=== PATIENT | male | born 1945 | race Two or more races ===

== ENCOUNTER 2016-11-29 14:56 | Emergency (ER) | payer SELFPAY ==
[~2016-11-29] VITALS: Ht 165.1 cm; Wt 52.2 kg
[2016-11-29 15:26] VITALS: BP 134/72
--- NOTE | 2016-11-29 15:39 | Emergency Room Report ---
History of Present Illness General Chief Complaint: Pain Source: EMS Present Illness HPI 71-year-old male presents to the emergency department brought by ambulance for being unresponsive to bystanders on the street. Patient is hard of hearing and Slovak speaking only. and states he has no complaints at this time patient is ambulatory in no acute distress history of present illness and ROS is limited due to patient being so hard of hearing however he does communicate that he is not in any pain does not have any complaints he is aware of where he is and is alert and oriented. Denies CP, Palpitations, LOC, AMS, dizziness, Changes in Vision, Sensation, paresthesias, or a sudden severe headache. Allergies: Coded Allergies: No Known Allergies (Unverified , 11/29/16) Patient History Limited by: language barrier - upper sorbian speaking, other - very hard of hearing Past Medical History: see triage record Past Surgical History: none Pertinent Family History: none Immunizations: UTD Reviewed Nursing Documentation: PMH: Agreed, PSxH: Agreed Nursing Documentation-PMH Past Medical History: No Stated History Review of Systems All Other Systems: limited - due to pt. having difficulty hearing Physical Exam Vital Signs Date Time Temp Pulse Resp B/P Pulse Ox O2 Delivery O2 Flow Rate FiO2 11/29/16 14:52 98.8 86 16 134/72 98 Room Air Sp02 EP Interpretation: reviewed, normal General Appearance: no apparent distress, alert, GCS 15, non-toxic Head: normocephalic, atraumatic Eyes: bilateral eye PERRL, bilateral eye normal inspection ENT: normal pharynx, no angioedema, normal voice, other - hearing grossly impaired Neck: full range of motion, supple/symm/no masses Respiratory: lungs clear, normal breath sounds, speaking full sentences Cardiovascular #1: regular rate, rhythm, no edema Gastrointestinal: normal bowel sounds, non tender, soft, no guarding, no rebound Rectal: deferred Genitourinary: normal inspection, no CVA tenderness Musculoskeletal: back normal, gait/station normal, normal range of motion, non- tender, no calf tenderness Neurologic: alert, oriented x3, responsive, motor strength/tone normal, sensory intact, cerebellar normal, normal gait, speech normal, no pronator Psychiatric: judgement/insight normal, memory normal, mood/affect normal, no suicidal/homicidal ideation Skin: normal color, no rash, warm/dry, well hydrated, other - no bruises or abrasions Medical Decision Making PA Attestation Dr. Badillo is my supervising Physician whom patient management has been discussed with. Diagnostic Impression: Primary Impression: Encounter for medical screening examination Additional Impression: Hearing impaired person Qualified Codes: H91.93 - Unspecified hearing loss, bilateral ER Course 71-year-old male presents to the emergency department brought by ambulance for being unresponsive to bystanders on the street. Patient is hard of hearing and Slovak speaking only. and states he has no complaints at this time patient is ambulatory in no acute distress history of present illness and ROS is limited due to patient being so hard of hearing however he does communicate that he is not in any pain does not have any complaints he is aware of where he is and is alert and oriented. Denies CP, Palpitations, LOC, AMS, dizziness, Changes in Vision, Sensation, paresthesias, or a sudden severe headache. Ddx considered but are not limited to AMS, ETOH, infection, Trauma/Fall, CVA, [place] , Psych, homelessness Vital signs: are WNL, pt. is afebrile H&PE are most consistent with grossly impaired hearing and language barrier, no acute injury or disease noted at this time. pt. is NAD, NON-toxic, able to answer questions appropriately, pt. is oriented, and no signs of trauma or focal neurological deficits. Pt states hearing impairment is not acute. -Pt. is not homeless states he lives in a care facility, does not know telephone number, only the name of facility.- this information including name of complex was given to registration. ORDERS: none required at this time, the diagnosis is clinical ED INTERVENTIONS: None required at this time, pt is allowed to rest while next of Kin or family members are contacted. Pt. is stable for close outpatient follow up. - Transport back to facility was facilitated. DISCHARGE: At this time pt. is stable for d/c to home. Will provide printed patient care instructions, and any necessary prescriptions. Care plan and follow up instructions have been discussed with the patient prior to discharge. Last Vital Signs Date Time Temp Pulse Resp B/P Pulse Ox O2 Delivery O2 Flow Rate FiO2 11/29/16 15:26 16 134/72 98 Room Air 11/29/16 14:52 98.8 86 Disposition: HOME, SELF-CARE Condition: Stable Patient Instructions: Medical Screening Exam Additional Instructions: Take any previously prescribed medications as directed. Follow up with PCP in 3-5 days Return sooner to ED if new symptoms occur, or current symptoms become worse. - Please note that this Emergency Department Report was dictated using [employer] m[employer] technology software, occasionally this can lead to erroneous entry secondary to interpretation by the dictation equipment. Erika Shaw Nov 29, 2016 15:39
== END 2016-11-29 16:14 | disposition home or self-care (01) ==
LOC: EDBD 14:56 → EMR 15:55
DX: Z00.00 Encounter for general adult medical examination without abnormal findings (principal); H91.93 Unspecified hearing loss, bilateral
CPT/HCPCS: 99283